=== PATIENT | female | born 1950 | race Caucasian/White ===

== ENCOUNTER → 2017-03-12 | Outpatient (CLI) | payer MEDICARE, OTHER ==
--- NOTE | 2017-03-12 13:17 | MR ---
EXAMINATION TYPE: MR brain wo con DATE OF EXAM: 03/12/2017 11:51 AM. COMPARISON: Previous study dated 11/21/2015 and 20/03/2013. HISTORY: Right parietal meningioma. Technique: Multiplanar, multiecho imaging of the brain was obtained without intravenous contrast. FINDINGS: There is a partially empty sella. Midline structures are otherwise unremarkable. There is a normal craniocervical junction. Echoplanar diffusion imaging is normal. There are normal vascular flow voids. There is mild mucoperiosteal thickening involving the ethmoid sinuses. The orbits are unremarkable. There is no evidence of a CP angle mass lesion. There are approximately 5-6 subcentimeter high signal FLAIR lesion in the right cerebral hemisphere. The number appears to increase because the quality of this examination is superior. There is no mass effect, midline shift or intracranial blood. The patient's posterior parietal meningiomas again identified. It measures 12.2 mm. This has decrease d from 13.7 mm on the 2013 scan. This is likely due to the lack of enhancement. IMPRESSION: 1. NO ACUTE INTRACRANIAL ABNORMALITY. 2. STABLE RIGHT PARIETAL MENINGIOMA. 3. PARTIALLY OF THE SELLA. 4. RARE, SUBCENTIMETER FLAIR LESIONS. THESE ARE NONSPECIFIC.
== END | disposition home or self-care (01) ==
LOC: RADMRIMAIN 11:11
PROVIDERS: ATTEND Psychiatry & Neurology Neurology
DX: D32.0 Benign neoplasm of cerebral meninges (principal)
CPT/HCPCS: 70551

== ENCOUNTER → 2017-04-10 | Outpatient (CLI) | payer MEDICARE, OTHER ==
[2017-04-10 12:32] LABS: Non-African American GFR(MDRD) >60 (>60 ml/min/1.73 sqM)
== END | disposition home or self-care (01) ==
LOC: LABWHC1 11:30
PROVIDERS: ATTEND Psychiatry & Neurology Neurology
DX: Z13.89 Encounter for screening for other disorder (principal)
CPT/HCPCS: 36415; 82565

== ENCOUNTER → 2017-04-12 | Outpatient (CLI) | payer MEDICARE, OTHER ==
--- NOTE | 2017-04-12 14:59 | MR ---
EXAMINATION TYPE: MR brain w con DATE OF EXAM: 04/12/2017 COMPARISON: 03/12/2017 and 04/08/2013 HISTORY: 66-year-old female with intracranial meningioma TECHNIQUE: Multiplanar, multisequence images of the brain and brainstem were acquired after administ ration of 20 mL IV MultiHance. FINDINGS: The previously seen focus of enhancement along the right parietal calvarium shows decrease in size no w measuring 7 x 7 mm versus 14 x 13 mm, previously. As compared to 2013, there is slightly increased enhancement within the calvarium along the left fron veto convexity, postcontrast axial image 24. This measures 1.3 cm. There is normal variant hyperostosi s frontalis interna. Dural venous sinuses are patent. Empty sella incidentally noted. No other intracranial enhancing lesions, mass effect, or midline shift. Dural venous sinuses are hare nt. IMPRESSION: 1. The previously seen enhancing lesion within the right parietal calvarium seems to have decreased i n size now measuring 7 mm versus 1.4 cm, previously. Given position within the calvarium, findings ma y represent a vascular etiology such as a penetrating vessel or hemangioma rather than a meningioma. 2. An area of enhancement within the left frontal calvarium has increased slightly from 2013 now joyce uring 1.3 cm. This is nonspecific and may represent a hemangioma. 3. No suspicious enhancing lesions seen.
== END | disposition home or self-care (01) ==
LOC: RADMRIMAIN 12:10
PROVIDERS: ATTEND Psychiatry & Neurology Neurology
DX: D32.0 Benign neoplasm of cerebral meninges (principal)
CPT/HCPCS: 70552; A9577

== ENCOUNTER → 2017-09-29 | Outpatient (CLI) | payer MEDICARE, OTHER ==
--- NOTE | 2017-10-01 10:55 | MM ---
Reason for exam: screening (asymptomatic). Last mammogram was performed 4 years and 9 months ago. History: Patient is postmenopausal. Family history of premenopausal breast cancer in mother at age 40. Took tamoxifen for 2 years 6 months. Physical Findings: A clinical breast exam by your physician is recommended on an annual basis and results should be correlated with mammographic findings. MG 3D Screening Mammo W/Cad Bilateral CC and MLO view(s) were taken. Prior study comparison: December 27, 2012, bilateral digital screening mammo w/CAD. July 14, 2010, bilateral digital screening mammogram. The breast tissue is almost entirely fat. No significant changes when compared with prior studies. ASSESSMENT: Benign, BI-RAD 2 RECOMMENDATION: Routine screening mammogram of both breasts in 1 year.
== END | disposition home or self-care (01) ==
LOC: RADMAMWWP 11:29
PROVIDERS: ATTEND Family Medicine
DX: Z12.31 Encounter for screening mammogram for malignant neoplasm of breast (principal)
CPT/HCPCS: 77063; G0202

== ENCOUNTER → 2017-12-16 | Outpatient (CLI) | payer MEDICARE, OTHER ==
--- NOTE | 2017-12-16 09:52 | MR ---
EXAMINATION TYPE: MR lumbar spine wo con DATE OF EXAM: 12/16/2017 COMPARISON: 08/20/2010 HISTORY: Low back pain TECHNIQUE: T1 and T2 axial and sagittal images of the lumbar spine are submitted. FINDINGS: There is no abnormal signal seen within the visualized spinal cord or paraspinal soft tissu es. At L1-2 there is no disc herniation or canal stenosis. Mild hypertrophic change of the facets. No for aminal encroachment. At L2-3 there is degenerative disc disease with circumferential disc bulging, facet arthropathy and l igamentum flavum hypertrophy. Mild bilateral foraminal encroachment but no canal stenosis. At L3-4 there is degenerative disc disease with diffuse disc bulging, ligamentum flavum hypertrophy, and facet arthropathy. There is moderate bilateral foraminal encroachment and mild central stenosis. At L4-5 there is degenerative disc disease with broad-based central disc bulging, facet arthropathy a nd ligamentum flavum hypertrophy. There is moderate bilateral foraminal encroachment and mild central stenosis. At L5-S1 there is mild central disc bulging but no canal stenosis. Neural foramina patent. Facet arth ropathy noted. IMPRESSION: 1. Multilevel degenerative disc disease with disc bulging particularly noted at L3-4 and L4-5. Facet arthropathy and ligamentum flavum hypertrophy contribute to bilateral foraminal encroachment and mild central stenosis. Findings stable. 2. There now is mild circumferential disc bulging and facet arthropathy at L2-L3 with no canal stenos is. Mild bilateral foraminal encroachment. Findings have progressed from previous exam.
== END | disposition home or self-care (01) ==
LOC: RADMRIMAIN 08:42
PROVIDERS: ATTEND Psychiatry & Neurology Neurology
DX: M48.061 Spinal stenosis, lumbar region without neurogenic claudication (principal); M51.26 Other intervertebral disc displacement, lumbar region; M51.36 Other intervertebral disc degeneration, lumbar region; M46.96 Unspecified inflammatory spondylopathy, lumbar region; M24.28 Disorder of ligament, vertebrae
CPT/HCPCS: 72148

== ENCOUNTER → 2019-11-16 | Outpatient (CLI) | payer MEDICARE ==
--- NOTE | 2019-11-20 09:00 | MM ---
Reason for exam: screening (asymptomatic). Last mammogram was performed 2 years and 2 months ago. History: Patient is postmenopausal. Family history of premenopausal breast cancer in mother at age 40. Took tamoxifen for 2 years 6 months. Physical Findings: A clinical breast exam by your physician is recommended on an annual basis and results should be correlated with mammographic findings. MG 3D Screening Mammo W/Cad Bilateral CC and MLO view(s) were taken. Prior study comparison: September 29, 2017, bilateral MG 3d screening mammo w/cad. December 27, 2012, bilateral digital screening mammo w/CAD. The breast tissue is almost entirely fat. No significant changes when compared with prior studies. ASSESSMENT: Negative, BI-RAD 1 RECOMMENDATION: Routine screening mammogram of both breasts in 1 year.
== END | disposition home or self-care (01) ==
LOC: RADMAMWWP 11:17
PROVIDERS: ATTEND Family Medicine
DX: Z12.31 Encounter for screening mammogram for malignant neoplasm of breast (principal)
CPT/HCPCS: 77063; 77067

== ENCOUNTER 2020-07-20 08:11 | Emergency (ER) | payer MEDICARE ==
[2020-07-20 08:30] LABS: Glucose,Whole Blood 128 mg/dL (75-99)
--- NOTE | 2020-07-20 08:34 | ED ---
General Adult HPI - General Chief complaint: Syncope Stated complaint: Fall Time Seen by Provider: 07/20/20 08:13 Source: EMS Mode of arrival: EMS Limitations: no limitations - History of Present Illness Initial comments: Dictation was produced using curated.by dictation software. please excuse any grammatical, word or spelling errors. This patient was cared for during a federal and state declared state of emergency secondary to Covid 19 Chief Complaint: 70-year-old female past medical history of Parkinson's presents after fall History of Present Illness: 70-year-old female she was at one of the local retreat centers for a scrap with a retreat. She states she remembers waking up this morning get dressed. Next she remembers was that she was working on a scrap booking. She does not recall anything between then and when she woke up in the ambulance. According to EMS patient was found on the ground after a fall. The patient was significantly confused patient had a normal glucose of 117. Patient has no complaints at this time. Patient is complaining of some mild occipital head pain. She has no extremity pain. The ROS documented in this emergency department record has been reviewed and confirmed by me. Those systems with pertinent positive or negative responses have been documented in the HPI. All other systems are other negative and/or noncontributory. PHYSICAL EXAM: General Impression: Alert and oriented x3, not in acute distress HEENT: Normocephalic atraumatic, extra-ocular movements intact, pupils equal and reactive to light bilaterally, mucous membranes moist. Cardiovascular: Heart regular rate and rhythm Chest: Able to complete full sentences, no retractions, no tachypnea Abdomen: abdomen soft, non-tender, non-distended, no organomegaly Musculoskeletal: Pulses present and equal in all extremities, no peripheral edema Motor: no focal deficits noted Neurological: Left upper and left lower facial weakness that is very mild, no extremity drift or extremity sensory deficits, patient is not aphasic, she is not dysarthric, no dysdiadochokinesis Skin: Intact with no visualized rashes Psych: Normal affect and mood ED course: 70-year-old female presents after fall. It's unclear whether patient experienced seizure, versus syncope. Signs upon arrival are within acceptable limits. Patient has has a history of Parkinson's disease. She is amnestic to the event. Chart review was performed. Patient has history of intracranial mass seen on MRI from April 2017. It is unclear patient was postictal. More history was obtained from daughter and . Daughter was also at the scrap book a retreat states that there was no observed postictal state after the episode. however reports that patient had several minutes of babbling after syncopal event. Daughter and reports that the fall was unwitnessed. Does describes that patient was simply just found on the ground. Daughter reports that she was verbal. Pelvis x-ray chest x-ray is unremarkable. Computed tomography scan of the brain and C-spine shows no acute processes. Patient at bedside began complaining of vertiginous symptoms. She is given some Antivert. reports that over the last several days she's been having episodes where she would randomly have vomiting episodes. Consider patient's clinical presentation there is concern the patient suffered a seizure. Case is discussed with family and they're agreeable for transfer to [facility] given we do not have neurology coverage over the weekend. Case is discussed with Dr. Valencia at [facility] was willing to accept ear to ER transfer. EKG interpretation: Ventricular rate 54, sinus bradycardia, MN interval 210, QRS 80, QTC 466. No MN prolongation, no QTC prolongation, no ST or T-wave changes noted. No EKG for comparison. Overall, this EKG is unremarkable - Related Data Home Medications Medication Instructions Recorded Confirmed Amantadine HCl [Gocovri] 274 mg PO HS 07/20/20 07/20/20 Aspirin EC [Ecotrin Low Dose] 81 mg PO DAILY 07/20/20 07/20/20 Carbidopa-Levodopa 25-100 mg 1 tab PO TID 07/20/20 07/20/20 [Sinemet 25-100 mg] Cholecalciferol [Vitamin D3 (25 2,000 unit PO DAILY 07/20/20 07/20/20 Mcg = 1000 Iu)] Levothyroxine Sodium [Synthroid] 100 mcg PO SUTHFRSA 07/20/20 07/20/20 Levothyroxine Sodium [Synthroid] 112 mcg PO MOTUWE 07/20/20 07/20/20 Loratadine [Claritin] 10 mg PO DAILY 07/20/20 07/20/20 Gormania-3 Fatty Acids/Fish Oil [Fish 1 cap PO DAILY 07/20/20 07/20/20 Oil 1,000 mg Softgel] Propylene Glycol/Peg 400/Pf 1 drop BOTH EYES DAILY PRN 07/20/20 07/20/20 [Systane 0.3-0.4% Eye Drops] Triamterene/Hydrochlorothiazid 0.5 tab PO DAILY 07/20/20 07/20/20 [Triamterene-Hctz 75-50 mg Tab] Vitamin B Complex 1 tab PO DAILY 07/20/20 07/20/20 Allergies Allergy/AdvReac Type Severity Reaction Status Date / Time codeine Allergy Hallucinati Verified 07/20/20 08:55 ons Review of Systems ROS Statement: Those systems with pertinent positive or pertinent negative responses have been documented in the HPI. ROS Other: All systems not noted in ROS Statement are negative. Past Medical History Past Medical History: Hypertension, Syncope History of Any Multi-Drug Resistant Organisms: None Reported Past Surgical History: Appendectomy, Hysterectomy Past Psychological History: Depression Smoking Status: Never smoker Past Alcohol Use History: Occasional Past Drug Use History: None Reported General Exam Limitations: no limitations Course Vital Signs 07/20/20 07/20/20 07/20/20 08:15 08:16 08:33 Temperature 97.5 F L 97.5 F L Pulse Rate 57 L 57 L 54 L Respiratory 16 18 16 Rate Blood Pressure 122/69 122/69 119/69 O2 Sat by Pulse 98 98 97 Oximetry 07/20/20 07/20/20 07/20/20 09:00 09:03 09:30 Temperature Pulse Rate 57 L 54 L 56 L Respiratory 18 18 16 Rate Blood Pressure 119/64 124/69 124/69 O2 Sat by Pulse 97 96 96 Oximetry 07/20/20 10:00 Temperature Pulse Rate 54 L Respiratory 15 Rate Blood Pressure 129/70 O2 Sat by Pulse 97 Oximetry Medical Decision Making - Lab Data Result diagrams: 07/20/20 08:34 07/20/20 08:34 Lab Results 07/20/20 07/20/20 07/20/20 Range/Units 08:29 08:34 08:34 WBC 5.9 (3.8-10.6) k/uL RBC 4.07 (3.80-5.40) m/uL Hgb 13.1 (11.4-16.0) gm/dL Hct 39.3 (34.0-46.0) % MCV 96.5 (80.0-100.0) fL MCH 32.1 (25.0-35.0) pg MCHC 33.3 (31.0-37.0) g/dL RDW 12.9 (11.5-15.5) % Plt Count 277 (150-450) k/uL Neutrophils % (Manual) 44 % Lymphocytes % (Manual) 43 % Monocytes % (Manual) 6 % Eosinophils % (Manual) 7 % Neutrophils # (Manual) 2.60 (1.3-7.7) k/uL Lymphocytes # (Manual) 2.54 (1.0-4.8) k/uL Monocytes # (Manual) 0.35 (0-1.0) k/uL Eosinophils # (Manual) 0.41 (0-0.7) k/uL Nucleated RBCs 0 (0-0) /100 WBC Manual Slide Review Performed PT 10.7 (9.0-12.0) sec INR 1.0 (<1.2) APTT 22.6 (22.0-30.0) sec Sodium (137-145) mmol/L Potassium (3.5-5.1) mmol/L Chloride (98-107) mmol/L Carbon Dioxide (22-30) mmol/L Anion Gap mmol/L BUN (7-17) mg/dL Creatinine (0.52-1.04) mg/dL Est GFR (CKD-EPI)AfAm (>60 ml/min/1.73 sqM) Est GFR (CKD-EPI)NonAf (>60 ml/min/1.73 sqM) Glucose (74-99) mg/dL POC Glucose (mg/dL) 128 H (75-99) mg/dL POC Glu [employer] Maintainer ID Rosalba Collado Plasma Lactic Acid Bucky (0.7-2.0) mmol/L Calcium (8.4-10.2) mg/dL Ionized Calcium Corry (4.5-5.3) mg/dL Magnesium (1.6-2.3) mg/dL Total Bilirubin (0.2-1.3) mg/dL AST (14-36) U/L ALT (4-34) U/L Alkaline Phosphatase (38-126) U/L Total Protein (6.3-8.2) g/dL Albumin (3.5-5.0) g/dL 10/17/20 10/17/20 Range/Units 08:34 08:34 WBC (3.8-10.6) k/uL RBC (3.80-5.40) m/uL Hgb (11.4-16.0) gm/dL Hct (34.0-46.0) % MCV (80.0-100.0) fL MCH (25.0-35.0) pg MCHC (31.0-37.0) g/dL RDW (11.5-15.5) % Plt Count (150-450) k/uL Neutrophils % (Manual) % Lymphocytes % (Manual) % Monocytes % (Manual) % Eosinophils % (Manual) % Neutrophils # (Manual) (1.3-7.7) k/uL Lymphocytes # (Manual) (1.0-4.8) k/uL Monocytes # (Manual) (0-1.0) k/uL Eosinophils # (Manual) (0-0.7) k/uL Nucleated RBCs (0-0) /100 WBC Manual Slide Review PT (9.0-12.0) sec INR (<1.2) APTT (22.0-30.0) sec Sodium 139 (137-145) mmol/L Potassium 2.8 L (3.5-5.1) mmol/L Chloride 104 (98-107) mmol/L Carbon Dioxide 27 (22-30) mmol/L Anion Gap 8 mmol/L BUN 14 (7-17) mg/dL Creatinine 0.98 (0.52-1.04) mg/dL Est GFR (CKD-EPI)AfAm 67 (>60 ml/min/1.73 sqM) Est GFR (CKD-EPI)NonAf 58 (>60 ml/min/1.73 sqM) Glucose 131 H (74-99) mg/dL POC Glucose (mg/dL) (75-99) mg/dL POC Glu [employer] Systems Maintainer ID Plasma Lactic Acid Bucky 1.4 (0.7-2.0) mmol/L Calcium 8.7 (8.4-10.2) mg/dL Ionized Calcium Corry 4.7 (4.5-5.3) mg/dL Magnesium 1.8 (1.6-2.3) mg/dL Total Bilirubin 1.6 H (0.2-1.3) mg/dL AST 31 (14-36) U/L ALT <6 (4-34) U/L Alkaline Phosphatase 76 (38-126) U/L Total Protein 6.6 (6.3-8.2) g/dL Albumin 4.0 (3.5-5.0) g/dL Disposition Clinical Impression: Syncope Disposition: OTHER INSTITUTION NOT DEFINED Condition: Fair Referrals: Hilario Weiss DO [Primary Care Provider] - 1-2 days Time of Disposition: 10:30 - Out of Hospital Transfer - Req. Specs Out of Hospital Transfer - Requested Specifics: Other Emergency Center ([facility])
[2020-07-20] MEDS ORDERED: ONDANSETRON 4 MG/2 ML VIAL IVP STA (08:55)
[2020-07-20 08:57] LABS: HCT 39.3 % (34.0-46.0); HGB 13.1 gm/dL (11.4-16.0); MCH 32.1 pg (25.0-35.0); MCHC 33.3 g/dL (31.0-37.0); MCV 96.5 fL (80.0-100.0); Mean Platelet Volume 6.5; Platelet Count 277 k/uL (150-450); RBC 4.07 m/uL (3.80-5.40); RDW 12.9 % (11.5-15.5); WBC 5.9 k/uL (3.8-10.6)
[2020-07-20 09:05] LABS: Partial Thromboplastin Time 22.6 sec (22.0-30.0); Prothrombin Time 10.7 sec (9.0-12.0)
--- NOTE | 2020-07-20 09:07 | CT ---
EXAMINATION TYPE: CT brain rylan wo con DATE OF EXAM: 07/20/2020 COMPARISON: 09/30/2009 HISTORY: Fall today with Posterior head injury. CT DLP: 1460.1 mGycm Automated exposure control for dose reduction was used. TECHNIQUE: CT scan of the head and cervical spine are performed without contrast. FINDINGS: There is no acute intracranial hemorrhage, mass effect, or midline shift identified. The ventricles and sulci are within normal limits in size. Calvarium intact. Hyperostosis of frontal dominic ne noted. The globes are intact and changes of chronic sinusitis noted. Parenchymal calcifications st able.. Assessment spinal canal limited due to resolution artifact. Arthropathy of the atlantoaxial joint. Lo ss of cervical lordosis with multilevel hypertrophic spurring. Mild multilevel degenerative disc dise ase. No compression deformities.. IMPRESSION: 1. There is no acute fracture or dislocation evident in the cervical spine. 2. No acute intracranial hemorrhage, mass effect, or midline shift is seen.
[2020-07-20 09:12] LABS: Eosinophils # (M) 0.41 k/uL (0-0.7); Lymphocytes # (M) 2.54 k/uL (1.0-4.8); Monocytes # (M) 0.35 k/uL (0-1.0); Neutrophils % (M) 44 %; Nucleated Red Blood Cells 0 /100 WBC (0-0); Total Cells Counted 100
[2020-07-20 09:20] LABS: Ionized Calcium 4.7 mg/dL (4.5-5.3)
[2020-07-20 09:28] LABS: ALT <6 U/L (4-34); AST 31 U/L (14-36); African American GFR (CKD) 67 (>60 ml/min/1.73 sqM); Alkaline Phosphatase 76 U/L (38-126); Anion Gap 8 mmol/L; Blood Urea Nitrogen 14 mg/dL (7-17); Calcium 8.7 mg/dL (8.4-10.2); Carbon Dioxide 27 mmol/L (22-30); Chloride 104 mmol/L (98-107); Glucose 131 mg/dL (74-99); Magnesium 1.8 mg/dL (1.6-2.3); Non-African American GFR(CKD) 58 (>60 ml/min/1.73 sqM); Potassium 2.8 mmol/L (3.5-5.1); Sodium 139 mmol/L (137-145); Total Bilirubin 1.6 mg/dL (0.2-1.3); Total Protein 6.6 g/dL (6.3-8.2)
[2020-07-20] MEDS ORDERED: SODIUM CHLORIDE 0.9% 1,000 ML IV STA (09:31)
[2020-07-20] MEDS ORDERED: MECLIZINE 12.5 MG TAB PO STA (09:31)
--- NOTE | 2020-07-20 09:50 | XR ---
EXAMINATION TYPE: XR chest 1V portable DATE OF EXAM: 07/20/2020 COMPARISON: NONE HISTORY: Syncope TECHNIQUE: Single frontal view of the chest is obtained. FINDINGS: There is no focal air space opacity, pleural effusion, or pneumothorax seen. The cardiac silhouette size is within normal limits. The osseous structures are intact. Limited inspiration. Sl ight prominence of the right hilum likely reflects patient rotation. Short-term Follow-up PA and late ral view of the chest could be obtained for confirmation. IMPRESSION: No acute process.
--- NOTE | 2020-07-20 09:51 | XR ---
EXAMINATION TYPE: XR pelvis AP view DATE OF EXAM: 07/20/2020 COMPARISON: NONE HISTORY: Pain The osseous structures are intact and the joint spaces are preserved. No acute fracture is seen. Vi sualized bowel gas pattern is nonspecific. Arthropathy of the hips could been the basis of femoral a cetabular impingement. Surgical clips in the pelvis. IMPRESSION: 1. No acute fracture.
[2020-07-20] MEDS ORDERED: POTASSIUM CHLORIDE 40 MEQ in WATER FOR INJECTION 1 100ML.BAG IVPB STA (10:13)
[2020-07-20] MEDS ORDERED: POTASSIUM CHLORIDE 20 MEQ in WATER FOR INJECTION 1 100ML.BAG IVPB SCH (10:15)
[2020-07-20 10:30] VITALS: RESP 18
[2020-07-20 10:37] LABS: Appearance,Urine Clear (Clear); Bilirubin,Urine Negative (Negative); Blood,Urine Negative (Negative); Color,Urine Yellow; Glucose,Urine (UA) Negative (Negative); Hyaline Casts,Urine 16 /lpf (0-2); Ketones,Urine Trace (Negative); Leukocyte Esterase,Urine Moderate (Negative); Mucus,Urine Rare /hpf; Nitrite,Urine Negative (Negative); Protein,Urine Negative (Negative); RBC,Urine 5 /hpf (0-5); Specific Gravity,Urine 1.012 (1.001-1.035); Urobilinogen,Urine <2.0 mg/dL (<2.0); WBC,Urine 14 /hpf (0-5)
[2020-07-20 10:54] VITALS: BP 124/69; PULSE 75; TEMP 98.9
== END 2020-07-20 10:59 | disposition other institution (70) ==
LOC: EC 08:11
DX: R55 Syncope and collapse (principal); R42 Dizziness and giddiness; R00.1 Bradycardia, unspecified; R41.3 Other amnesia; I10 Essential (primary) hypertension; G20 Parkinson's disease; Z79.82 Long term (current) use of aspirin; Z79.899 Other long term (current) drug therapy; Z79.890 Hormone replacement therapy; Z88.5 Allergy status to narcotic agent
CPT/HCPCS: 36415; 93005; 80053; 82330; 83605; 83735; 85025; 85610; 85730; 81001; 72170; 71045; 72125; 70450; 99285; 96365; 96375; 96361; J3480; J2405

== ENCOUNTER → 2020-08-08 | Outpatient (CLI) | payer MEDICARE ==
--- NOTE | 2020-08-08 12:33 | US ---
EXAMINATION TYPE: US abdomen complete DATE OF EXAM: 08/08/2020 COMPARISON: NONE CLINICAL HISTORY: M89.9 Disorder of bone. Unexplained N/V. GB removed. EXAM MEASUREMENTS: Liver Length: 13.4 cm CBD: 0.5 cm Spleen: 9.4 cm Right Kidney: 10.4 x 4.2 x 5.0 cm Left Kidney: 9.5 x 4.3 x 4.4 cm Pancreas: wnl Liver: The ultrasound poorly penetrates the liver Gallbladder: Surgically absent Evidence for sonographic Payne's sign: neg CBD: Limited visualization due to overlying bowel gas Spleen: wnl Right Kidney: No hydronephrosis or masses seen Left Kidney: No hydronephrosis or masses seen Upper IVC: wnl Abd Aorta: No AAA visualized There is no ascites. Kidneys show normal cortical medullary differentiation. IMPRESSION: Limited exam. Status post cholecystectomy. Correlate for possible hepatic steatosis.
== END | disposition home or self-care (01) ==
LOC: RADUSWWP 09:51
PROVIDERS: ATTEND Family Medicine
DX: R11.2 Nausea with vomiting, unspecified (principal); Z90.49 Acquired absence of other specified parts of digestive tract
CPT/HCPCS: 76700

== ENCOUNTER → 2020-08-15 | Outpatient (CLI) | payer MEDICARE ==
--- NOTE | 2020-08-15 13:30 | FL ---
Barium swallow HISTORY: Dysphasia Patient was given high density barium to drink. 1 minute 20 seconds fluoroscopy time, 71 images obtai marcellus Following mechanism is normal. No extrinsic or intrinsic esophageal lesion. There is no obstruction t o flow. No significant hiatal hernia or gastroesophageal reflux. impression: Normal barium swallow.
== END | disposition home or self-care (01) ==
LOC: RADUSWWP 10:55
PROVIDERS: ATTEND Family Medicine
DX: R13.10 Dysphagia, unspecified (principal)
CPT/HCPCS: 74220

== ENCOUNTER → 2022-03-19 | Outpatient (CLI) | payer MEDICARE ==
--- NOTE | 2022-03-19 12:18 | FL ---
EXAMINATION TYPE: FL barium swallow w video DATE OF EXAM: 03/19/2022 MODIFIED SWALLOW / DEGLUTITION STUDY CLINICAL HISTORY: Dysphagia. TECHNIQUE: Deglutition study is performed utilizing thin liquid barium, puree consistency, and bariu m coated cracker. FINDINGS: There is no evidence of laryngeal penetration or aspiration at the time of the study. Total fluoroscopic time 1 minute and 18 seconds. No images on PACS. IMPRESSION: No laryngeal penetration or aspiration. Please refer to speech therapist notes for furthe r details.
== END | disposition home or self-care (01) ==
LOC: RADFLMAIN 11:12
PROVIDERS: ATTEND Family Medicine
DX: R13.10 Dysphagia, unspecified (principal)
CPT/HCPCS: 74230

== ENCOUNTER → 2023-09-03 | Outpatient (CLI) | payer MEDICARE ==
--- NOTE | 2023-09-06 15:00 | MM ---
Reason for Exam: Screening (asymptomatic). Last mammogram was performed 3 year(s) and 10 month(s) ago. Patient History: Menarche at age 11. First Full-Term at age 21. Left ovary removed at age 56. Right ovary removed at age 56. Hysterectomy at age 56. Postmenopausal. Tamoxifen for 2 years, 6 months. Mother had breast cancer, age 40. Risk Values: Diana 5 year model risk: 3.4%. NCI Lifetime model risk: 7.7%. Prior Study Comparison: 12/27/2012 Bilateral Screening Mammogram, [facility]. 09/29/2017 Bilateral Screening Mammogram, [facility]. 11/16/2019 Bilateral Screening Mammogram, [facility]. Tissue Density: There are scattered fibroglandular densities. Findings: Analyzed By CAD. Pattern appears symmetrical and stable. No significant interval changes are evident. No suspicious groups of microcalcifications, spiculated or lobular masses, architectural distortion or other secondary signs of malignancy are mammographically apparent. Overall Assessment: Benign, BI-RAD 2 Management: Screening Mammogram of both breasts in 1 year. A negative mammogram report should not preclude additional follow up of suspicious palpable abnormalities. Patient should continue monthly self breast exam. A clinical breast exam by your physician is recommended on an annual basis and results should be correlated with mammographic findings. Electronically signed and approved by: Hilario Rolle D.O. Radiologis
== END | disposition home or self-care (01) ==
LOC: RADMAMWWP 15:26
PROVIDERS: ATTEND Family Medicine
DX: Z12.31 Encounter for screening mammogram for malignant neoplasm of breast (principal); Z78.0 Asymptomatic menopausal state; Z80.3 Family history of malignant neoplasm of breast
CPT/HCPCS: 77063; 77067